=== PATIENT | male | born 1955 | race Caucasian/White ===

== ENCOUNTER 2018-11-12 15:54 | Inpatient (IN) | payer OTHER ==
[~2018-11-12] VITALS: Ht 170.2 cm; Wt 132.9 kg
[~2018-11-12 15:54] MED LIST changes: -ACET325 PO; -AMLO10 PO; -ATOR20 PO; -CEFP200 PO; -CENTRUM SILVER1 EAC2 PO; -Florastor250 MG PO; -MIRALAX17 GM PO; -TAMS.4ER PO; -VIT1CAPS12 PO
[2018-11-12 17:57] LABS: Source, Urine Catheter
[2018-11-12 18:09] LABS: Bilirubin, Urine Neg (Neg); Blood, Urine 5+ (Neg); Glucose Qualitative, Urine Neg (Neg); Ketones, Urine 1+ (Neg); Leukocyte Esterase, Urine 3+ (Neg); Nitrite, Urine Neg (Neg); Protein, Urine 3+ (Neg); Specific Gravity, Urine 1.015 (1.003-1.022); Urobilinogen, Urine NORM (Normal)
[2018-11-12 18:14] LABS: Appearance, Urine Hazy (Clear); Color, Urine Yellow (P-Yellow)
[2018-11-12 18:16] LABS: Bacteria Mod /hpf; Mucus Mod ({null, 0-Heavy}); Squamous Epithelial Cells Not Seen /hpf (Few); White Blood Cells, Urine 50-100 /hpf (0-5)
[2018-11-12] MEDS ORDERED: AMLO10 PO (18:59)
[2018-11-12] MEDS ORDERED: ATOR20 PO (18:59)
[2018-11-12] MEDS ORDERED: VIT1CAPS12 PO (18:59)
[2018-11-12] MEDS ORDERED: TAMS.4ER PO (19:00)
[2018-11-12] MEDS ORDERED: METF500 PO (21:19)
--- NOTE | 2018-11-13 04:24 | NUR ---
SHIFT SUMMARY: PT IS ALERT AND ORIENTED. PT IS CALM AND COOPERATIVE WITH CARE. PT CALLS APPROPRIATLEY. PT IS INDEPENDENT IN THE ROOM. PT DENIES PAIN, NAUSEA, VOMITING, AND SOB. PT SLEPT MUCH OF THE NIGHT WHEN NOT DISTURBED. LACTIC ACID LEVEL TRENDING DOWN. PT AFEBRILE SINCE ADMISSION. NO ACUTE CHANGES OR COMPLICATIONS THIS SHIFT. BED IN LOW POSITION, CALL LIGHT WITHIN REACH. WILL REPORT TO DAY NURSE.
[2018-11-13 04:50] LABS: BASOPHILS ABSOLUTE AUTO 0.02 K/mm3 (0.00-0.23); BASOPHILS PERCENT AUTO 0 % (0-2); EOSINOPHILS ABSOLUTE AUTO 0.05 K/mm3 (0.00-0.68); EOSINOPHILS PERCENT AUTO 0 % (0-6); Hematocrit 34.7 % (37.0-53.0); Hemoglobin 11.4 g/dL (13.5-17.5); IMMATURE GRAN ABSOLUTE AUTO 0.05 K/mm3 (0.00-0.10); IMMATURE GRAN PERCENT AUTO 0 % (0-1); LYMPHOCYTES ABSOLUTE AUTO 1.21 K/mm3 (0.84-5.20); LYMPHOCYTES PERCENT AUTO 9 % (21-46); MONOCYTES ABSOLUTE AUTO 1.22 K/mm3 (0.16-1.47); MONOCYTES PERCENT AUTO 9 % (4-13); Mean Corpuscular HGB 28.5 pg (26.0-34.0); Mean Corpuscular HGB Conc 32.9 g/dL (31.5-36.5); Mean Platelet Volume 9.3 fL (9.1-12.4); NEUTROPHILS ABSOLUTE AUTO 11.26 K/mm3 (1.96-9.15); NEUTROPHILS PERCENT AUTO 82 % (41-73); Platelet Count 185 K/mm3 (150-400); RDW Coefficient Variation 14.6 % (11.7-14.2); RDW Standard Deviation 46.1 fL (35.1-46.3); White Blood Cell Count 13.81 K/mm3 (4.00-11.30)
[2018-11-13 04:51] LABS: Mean Corpuscular Volume 87 fL (80-100)
[2018-11-13 05:10] LABS: Anion Gap 9 mmol/L (6-16); Blood Urea Nitrogen 7 mg/dL (8-24); Bun/Creatinine Ratio 8.1 (12.0-20.0); CO2, Blood 24 mmol/L (21-32); Calcium, Blood 8.2 mg/dL (8.5-10.1); Chloride, Blood 104 mmol/L (98-108); Creatinine, Blood 0.86 mg/dL (0.60-1.20); Glomerular Filtration Rate >60 (60-); Glucose, Blood 151 mg/dL (70-99); Potassium, Blood 3.5 mmol/L (3.5-5.5); Sodium, Blood 137 mmol/L (136-145)
--- NOTE | 2018-11-13 17:57 | NUR ---
PT IS A/OX3, PLEASANT AND COOPERATIVE, THE PT IS UP IND IN HIS ROOM , THE PT DENIED ANY PAIN T/O THE DAY, THE PT APPEARS TO BE BREATHING EASILY ON RA, THE PTS HAS BEEN AT THE BEDSIDE T/O THE DAY, CALL LIGHT IN REACH, WILL CONTINUE TO MONITOR AND ASSESS FOR CHANGES
[2018-11-14 04:43] LABS: BASOPHILS ABSOLUTE AUTO 0.02 K/mm3 (0.00-0.23); BASOPHILS PERCENT AUTO 0 % (0-2); EOSINOPHILS ABSOLUTE AUTO 0.25 K/mm3 (0.00-0.68); EOSINOPHILS PERCENT AUTO 3 % (0-6); Hematocrit 35.2 % (37.0-53.0); Hemoglobin 11.5 g/dL (13.5-17.5); IMMATURE GRAN ABSOLUTE AUTO 0.03 K/mm3 (0.00-0.10); IMMATURE GRAN PERCENT AUTO 0 % (0-1); LYMPHOCYTES PERCENT AUTO 13 % (21-46); MONOCYTES ABSOLUTE AUTO 0.91 K/mm3 (0.16-1.47); MONOCYTES PERCENT AUTO 10 % (4-13); Mean Corpuscular HGB 28.1 pg (26.0-34.0); Mean Corpuscular HGB Conc 32.7 g/dL (31.5-36.5); Mean Corpuscular Volume 86 fL (80-100); Mean Platelet Volume 9.4 fL (9.1-12.4); NEUTROPHILS ABSOLUTE AUTO 7.16 K/mm3 (1.96-9.15); NEUTROPHILS PERCENT AUTO 75 % (41-73); Platelet Count 184 K/mm3 (150-400); RDW Coefficient Variation 14.5 % (11.7-14.2); RDW Standard Deviation 45.1 fL (35.1-46.3); Red Blood Cell Count 4.09 M/mm3 (4.30-5.90); White Blood Cell Count 9.57 K/mm3 (4.00-11.30)
[2018-11-14 05:03] LABS: Albumin, Blood 2.6 g/dL (3.4-5.0); Anion Gap 8 mmol/L (6-16); Blood Urea Nitrogen 8 mg/dL (8-24); Bun/Creatinine Ratio 8.7 (12.0-20.0); CO2, Blood 28 mmol/L (21-32); Calcium, Blood 8.6 mg/dL (8.5-10.1); Chloride, Blood 105 mmol/L (98-108); Creatinine, Blood 0.92 mg/dL (0.60-1.20); Glomerular Filtration Rate >60 (60-); Glucose, Blood 124 mg/dL (70-99); Phosphorus, Blood 2.9 mg/dL (2.5-4.9); Potassium, Blood 3.6 mmol/L (3.5-5.5); Sodium, Blood 141 mmol/L (136-145)
--- NOTE | 2018-11-14 05:13 | NUR ---
SHIFT SUMMARY: PT IS ALERT AND ORIENTED. PT IS CALM, FRIENDLY, AND COOPERATIVE WITH CARE. PT CALLS APPROPRIATELY. PT IS INDEPENDENT IN THE ROOM. IN VISITING AT THE START OF THE NIGHT. PT DENIES PAIN, NAUSEA, VOMITING, AND SOB. PT SLEPT MUCH OF THE NIGHT WHEN NOT DISTURBED. NO ACUTE CHANGES OR COMPLICATIONS THIS SHIFT. WILL CONTINUE TO MONITOR.
[2018-11-14] MEDS ORDERED: ACET325 PO (12:39)
[2018-11-14] MEDS ORDERED: CENTRUM SILVER1 EAC2 PO (12:40)
[2018-11-14] MEDS ORDERED: CEFP200 PO (12:40)
[2018-11-14] MEDS ORDERED: MIRALAX17 GM PO (12:41)
[2018-11-14] MEDS ORDERED: Florastor250 MG PO (12:41)
--- NOTE | 2018-11-14 14:50 | NUR ---
PT DISCHARGED THE PT VERBALIZED UNDERSTANDING OF THE DC INSTRUCTIONS, THE PTS PRESCRIPTIONS FAXED TO [facility] REQUESTED, AN APPOINTMENT WAS MADE WITH DR. LLANOS FOR POST HOSPITAL REVIEW, THE PT WAS TRANSFERED VIA WHEELCHAIR ACCOMPANIED BY ESCORT AND HIS SON, PT APPEARED TO BE BREATHING EASILY ON RA AT DISCHARGE
== END 2018-11-14 13:30 | disposition home or self-care (01) | DRG 862 ==
LOC: ER 15:54 → MEDS 20:05
PROVIDERS: Family Medicine; Physician Assistant; ADMIT Hospitalist
DX: T81.44XA Sepsis following a procedure, initial encounter (principal); R65.20 Severe sepsis without septic shock; A41.89 Other specified sepsis; E87.1 Hypo-osmolality and hyponatremia; N10 Acute pyelonephritis; E11.9 Type 2 diabetes mellitus without complications; E66.01 Morbid (severe) obesity due to excess calories; D64.9 Anemia, unspecified; I10 Essential (primary) hypertension; K21.9 Gastro-esophageal reflux disease without esophagitis; Z79.82 Long term (current) use of aspirin; Z79.899 Other long term (current) drug therapy; Z68.24 Body mass index [BMI] 24.0-24.9, adult
CPT/HCPCS: 36415; 74177; 80048; 80069; 81001; 82947; 83605; 85025; 87086; 93005; 93010; 96360-59; 96361; 99285-25; A9270; J0696; J1650; J7030; J7120; Q9967

== ENCOUNTER → 2018-11-12 | Outpatient (CLI) | payer OTHER ==
[~2018-11-12] MED LIST: ACET325 PO; AMLO10 PO; ASPI81CH PO; ATEN50 PO; ATOR20 PO; CEFP200 PO; CENTRUM SILVER1 EAC2 PO; Florastor250 MG PO; LISI20 PO; METF500 PO; MIRALAX17 GM PO; OMEP20ER PO; TAMS.4ER PO; VIT1CAPS12 PO
[2018-11-12 12:45] LABS: BASOPHILS ABSOLUTE AUTO 0.03 K/mm3 (0.00-0.23); BASOPHILS PERCENT AUTO 0 % (0-2); EOSINOPHILS ABSOLUTE AUTO 0.04 K/mm3 (0.00-0.68); EOSINOPHILS PERCENT AUTO 0 % (0-6); Hematocrit 39.5 % (37.0-53.0); Hemoglobin 13.4 g/dL (13.5-17.5); IMMATURE GRAN ABSOLUTE AUTO 0.04 K/mm3 (0.00-0.10); IMMATURE GRAN PERCENT AUTO 0 % (0-1); LYMPHOCYTES ABSOLUTE AUTO 1.44 K/mm3 (0.84-5.20); LYMPHOCYTES PERCENT AUTO 12 % (21-46); MONOCYTES ABSOLUTE AUTO 1.24 K/mm3 (0.16-1.47); MONOCYTES PERCENT AUTO 10 % (4-13); Mean Corpuscular HGB 28.3 pg (26.0-34.0); Mean Corpuscular HGB Conc 33.9 g/dL (31.5-36.5); Mean Corpuscular Volume 83 fL (80-100); Mean Platelet Volume 9.2 fL (9.1-12.4); NEUTROPHILS PERCENT AUTO 78 % (41-73); Platelet Count 240 K/mm3 (150-400); RDW Coefficient Variation 14.4 % (11.7-14.2); RDW Standard Deviation 43.3 fL (35.1-46.3); Red Blood Cell Count 4.74 M/mm3 (4.30-5.90); White Blood Cell Count 12.49 K/mm3 (4.00-11.30)
[2018-11-12 12:55] LABS: Alanine Aminotransfer (ALT/SGP 22 U/L (12-78); Albumin, Blood 3.6 g/dL (3.4-5.0); Albumin/Globulin Ratio 0.9 (0.8-1.8); Alk Phos 79 U/L (40-126); Anion Gap 11 mmol/L (6-16); Aspartate Aminotrans (AST/SGOT 16 U/L (12-37); Bilirubin, Total 0.9 mg/dL (0.1-1.0); Blood Urea Nitrogen 8 mg/dL (8-24); Bun/Creatinine Ratio 6.9 (12.0-20.0); CO2, Blood 25 mmol/L (21-32); Calcium, Blood 9.3 mg/dL (8.5-10.1); Chloride, Blood 97 mmol/L (98-108); Creatinine, Blood 1.16 mg/dL (0.60-1.20); Glomerular Filtration Rate >60 (60-); Glucose, Blood 146 mg/dL (70-99); Potassium, Blood 3.7 mmol/L (3.5-5.5); Sodium, Blood 133 mmol/L (136-145); Total Protein, Blood 7.6 g/dL (6.4-8.2)
== END | disposition home or self-care (01) ==
LOC: LAB SHORT 12:36 → LAB EV 12:36
PROVIDERS: Physician Assistant
DX: A41.9 Sepsis, unspecified organism (principal)
CPT/HCPCS: 80053; 83605; 85025; 87040; 87077; 87086; 87186

== ENCOUNTER → 2018-11-22 | Outpatient (CLI) | payer OTHER ==
[~2018-11-22] MED LIST changes: +ACET325 PO; +AMLO10 PO; +ATOR20 PO; +CEFP200 PO; +CENTRUM SILVER1 EAC2 PO; +Florastor250 MG PO; +MIRALAX17 GM PO; +TAMS.4ER PO; +VIT1CAPS12 PO
== END | disposition home or self-care (01) ==
LOC: LAB UCHC 12:26 → LAB SHORT 12:26
DX: Z09 Encounter for follow-up examination after completed treatment for conditions other than malignant neoplasm (principal); Z87.442 Personal history of urinary calculi
CPT/HCPCS: 87086

== ENCOUNTER → 2019-05-22 | Outpatient (CLI) | payer OTHER | END | disposition home or self-care (01) | LOC: LAB 05:30 → LAB SHORT 05:30 → LAB FUT 05-15 10:00 | DX: N20.0 Calculus of kidney (principal) | CPT/HCPCS: 81050 ==

== ENCOUNTER 2021-12-02 16:14 | Emergency (ER) | payer OTHER ==
[~2021-12-02] VITALS: Ht 167.6 cm; Wt 136.1 kg
[2021-12-02] MEDS ORDERED: HYDR1TAB94 PO (19:04)
[2021-12-02] MEDS ORDERED: ONDA4ODT MM (19:07)
== END 2021-12-02 19:36 | disposition home or self-care (01) ==
LOC: ER 16:14
DX: S01.81XA Laceration without foreign body of other part of head, initial encounter (principal); S01.02XA Laceration with foreign body of scalp, initial encounter; M25.511 Pain in right shoulder; V49.60XA Unspecified car occupant injured in collision with unspecified motor vehicles in traffic accident, initial encounter; I10 Essential (primary) hypertension; E11.9 Type 2 diabetes mellitus without complications; Z79.899 Other long term (current) drug therapy; Z79.84 Long term (current) use of oral hypoglycemic drugs
CPT/HCPCS: 70450; 72125; 73030; A9270

== ENCOUNTER → 2023-02-23 | Outpatient (CLI) | payer OTHER ==
[~2023-02-23] MED LIST changes: +HYDR1TAB94 PO; +ONDA4ODT MM
== END ==
LOC: LAB 17:56 → LAB SHORT 17:56
DX: E11.9 Type 2 diabetes mellitus without complications (principal)
CPT/HCPCS: 82043

== ENCOUNTER 2024-11-11 11:28 | Observation (INO) | payer OTHER, MEDICARE ==
[~2024-11-11] VITALS: Ht 170.2 cm; Wt 129.4 kg
[2024-11-11] MEDS ORDERED: NS 1,000 ML IV SCH ×2 (12:40→16:25)
[2024-11-11 12:55] LABS: BASOPHILS ABSOLUTE AUTO 0.02 K/mm3 (0.00-0.23); BASOPHILS PERCENT AUTO 0 % (0-2); EOSINOPHILS ABSOLUTE AUTO 0.23 K/mm3 (0.00-0.68); EOSINOPHILS PERCENT AUTO 3 % (0-6); Hematocrit 33.2 % (37.0-53.0); Hemoglobin 11.3 g/dL (13.5-17.5); IMMATURE GRAN ABSOLUTE AUTO 0.03 K/mm3 (0.00-0.10); IMMATURE GRAN PERCENT AUTO 0 % (0-1); LYMPHOCYTES ABSOLUTE AUTO 1.50 K/mm3 (0.84-5.20); LYMPHOCYTES PERCENT AUTO 17 % (21-46); MONOCYTES ABSOLUTE AUTO 0.86 K/mm3 (0.16-1.47); MONOCYTES PERCENT AUTO 10 % (4-13); Mean Corpuscular HGB Conc 34.0 g/dL (31.5-36.5); Mean Corpuscular Volume 90 fL (80-100); NEUTROPHILS ABSOLUTE AUTO 6.06 K/mm3 (1.96-9.15); NEUTROPHILS PERCENT AUTO 70 % (41-73); NRBC ABSOLUTE 0.00 K/mm3 (0.00-0.02); NRBC Auto 0.0 /100 WBC (0.0-0.2); Platelet Count 248 K/mm3 (150-400); RDW Coefficient Variation 13.2 % (11.7-14.2); RDW Standard Deviation 43.6 fL (35.1-46.3)
[2024-11-11 13:20] LABS: Alanine Aminotransfer (ALT/SGP 16.0 U/L (12-78); Albumin, Blood 3.3 g/dL (3.4-5.0); Albumin/Globulin Ratio 0.8 (0.8-1.8); Anion Gap 10.0 mmol/L (3-11); Aspartate Aminotrans (AST/SGOT 10.0 U/L (12-37); Bilirubin, Total 0.7 mg/dL (0.1-1.0); Blood Urea Nitrogen 31.0 mg/dL (8-24); CO2, Blood 21.0 mmol/L (21-32); Calcium, Blood 7.2 mg/dL (8.5-10.1); Chloride, Blood 106.0 mmol/L (98-108); Creatinine, Blood 3.47 mg/dL (0.60-1.20); Globulin, Blood 3.9 g/dL (2.2-4.0); Glucose, Blood 147.0 mg/dL (70-99); Potassium, Blood 4.4 mmol/L (3.5-5.5); Sodium, Blood 133.0 mmol/L (136-145); Total Protein, Blood 7.2 g/dL (6.4-8.2)
[2024-11-11 13:47] LABS: Source, Urine Clean Catch
[2024-11-11 13:54] LABS: Bilirubin, Urine Neg (Neg); Color, Urine Yellow (P-Yellow); Glucose Qualitative, Urine Neg (Neg); Ketones, Urine Neg (Neg); Leukocyte Esterase, Urine 3+ (Neg); Protein, Urine 3+ (Neg); Specific Gravity, Urine 1.015 (1.003-1.022); Urobilinogen, Urine NORM (Normal)
[2024-11-11 14:03] LABS: Red Blood Cells, Urine 25-50 /hpf (0-2); White Blood Cells, Urine 50-100 /hpf (0-5)
[2024-11-11] MEDS ORDERED: CefTRIAXone Sodium 1,000 MG in NS 50 ML IV ONE (15:20)
--- NOTE | 2024-11-11 18:54 | NUR ---
1850 pt to room from er. ambulated to bed from wheelchair. presents pleasant. to undress and dress in gown. at bedside. aide to get v/s. give report to blake nunez.
[2024-11-11 18:55] VITALS: BP 135/82
[2024-11-11] MEDS ORDERED: PRESERVISION A1 EAC1 PO (20:44)
[2024-11-11] MEDS ORDERED: OZEMPIC1 MG/0.72 SQ (20:45)
[2024-11-11] MEDS ORDERED: Lactobacil 2-S.Thermo-Bifido 1 1 Cap PO SCH (21:00)
--- NOTE | 2024-11-11 22:34 | NUR ---
PT ARRIVED DURING SHIFT CHANGE. THIS SHIFT'S CHARGE NURSE LUI Li COMPLETED THE ADMISSION ASSESSMENT. PT BROUGHT HIS HOME CPAP WITH HIM. BY THE BEDSIDE. EDUCATED ON FALL PRECAUTIONS, SMOKING POLICY AND CALL LIGHT USE. PT IS A/O X4, ABLE TO MAKE HIS NEEDS KNOWN AND COOPERATIVE WITH CARE. BED AT THE LOWEST POSITION,CALL LIGHT W/I REACH. PT IS INDEPENDENT WITHIN THE HOSPITAL ROOM.
[2024-11-12 02:44] VITALS: BP 110/80
[2024-11-12 05:37] LABS: BASOPHILS ABSOLUTE AUTO 0.04 K/mm3 (0.00-0.23); BASOPHILS PERCENT AUTO 1 % (0-2); EOSINOPHILS ABSOLUTE AUTO 0.32 K/mm3 (0.00-0.68); EOSINOPHILS PERCENT AUTO 4 % (0-6); Hematocrit 30.9 % (37.0-53.0); Hemoglobin 10.3 g/dL (13.5-17.5); IMMATURE GRAN ABSOLUTE AUTO 0.03 K/mm3 (0.00-0.10); IMMATURE GRAN PERCENT AUTO 0 % (0-1); LYMPHOCYTES ABSOLUTE AUTO 1.73 K/mm3 (0.84-5.20); LYMPHOCYTES PERCENT AUTO 21 % (21-46); MONOCYTES ABSOLUTE AUTO 0.92 K/mm3 (0.16-1.47); MONOCYTES PERCENT AUTO 11 % (4-13); Mean Corpuscular HGB Conc 33.3 g/dL (31.5-36.5); Mean Corpuscular Volume 90 fL (80-100); NEUTROPHILS ABSOLUTE AUTO 5.37 K/mm3 (1.96-9.15); NEUTROPHILS PERCENT AUTO 64 % (41-73); NRBC ABSOLUTE 0.00 K/mm3 (0.00-0.02); NRBC Auto 0.0 /100 WBC (0.0-0.2); Platelet Count 226 K/mm3 (150-400); RDW Coefficient Variation 13.3 % (11.7-14.2); RDW Standard Deviation 43.8 fL (35.1-46.3)
[2024-11-12 06:08] LABS: Alanine Aminotransfer (ALT/SGP 13.0 U/L (12-78); Albumin, Blood 2.8 g/dL (3.4-5.0); Albumin/Globulin Ratio 0.8 (0.8-1.8); Anion Gap 11.0 mmol/L (3-11); Aspartate Aminotrans (AST/SGOT 14.0 U/L (12-37); Bilirubin, Total 0.5 mg/dL (0.1-1.0); Blood Urea Nitrogen 30.0 mg/dL (8-24); CO2, Blood 20.0 mmol/L (21-32); Calcium, Blood 6.4 mg/dL (8.5-10.1); Chloride, Blood 111.0 mmol/L (98-108); Creatinine, Blood 2.73 mg/dL (0.60-1.20); Globulin, Blood 3.7 g/dL (2.2-4.0); Glucose, Blood 82.0 mg/dL (70-99); Potassium, Blood 4.1 mmol/L (3.5-5.5); Sodium, Blood 138.0 mmol/L (136-145); Thyroid Stimulating Hormone 1.46 uIU/mL (0.360-4.800); Total Protein, Blood 6.5 g/dL (6.4-8.2); Uric Acid, Blood 6.7 mg/dL (3.5-7.2)
[2024-11-12 07:15] VITALS: BP 149/82
[2024-11-12] MEDS ORDERED: Enoxaparin 30 MG/0.3 ML SYR SC SCH (09:00)
[2024-11-12] MEDS ORDERED: Enoxaparin 40 MG/0.4 ML SYR SC SCH (09:00)
[2024-11-12] MEDS ORDERED: NS 1,000 ML IV SCH (09:15)
--- NOTE | 2024-11-12 09:30 | NUR ---
[address] CALL, TURNING UP NS TO [address] MARADIAGA CALL
[2024-11-12] MEDS ORDERED: CefTRIAXone Sodium 1,000 MG in NS 100 ML IV SCH (12:00)
[2024-11-12 15:12] VITALS: BP 126/80
[2024-11-12 15:47] LABS: Anion Gap 10.0 mmol/L (3-11); Blood Urea Nitrogen 26.0 mg/dL (8-24); CO2, Blood 22.0 mmol/L (21-32); Calcium, Blood 6.7 mg/dL (8.5-10.1); Chloride, Blood 109.0 mmol/L (98-108); Creatinine, Blood 2.46 mg/dL (0.60-1.20); Glucose, Blood 113.0 mg/dL (70-99); Potassium, Blood 4.1 mmol/L (3.5-5.5); Sodium, Blood 137.0 mmol/L (136-145)
[2024-11-12] MEDS ORDERED: VISBIOME 112.51 EACH PO (16:39)
[2024-11-12] MEDS ORDERED: CEPH500 PO (16:40)
--- NOTE | 2024-11-12 16:51 | NUR ---
DR REYESED DISCHARGE AFTER REVIEW OF AFTERNOON LABS. PT OK TO GO. WORKING D/CHG
--- NOTE | 2024-11-12 18:16 | NUR ---
PT DISCHARGE REVIEWED WITH PT. HE VERBALIZED UNDERSTANDING MEDS AND INST. GAVE PT LAB ORDER ON RX PAPER. PT TO DRESS SELF. AIDE TO REMOVE IV, NO TELE. PT WHEELED TO DOOR AT 1755
== END 2024-11-12 17:55 | disposition home or self-care (01) ==
LOC: ER 11:28 → MEDS 11:29
PROVIDERS: Emergency Medicine; ADMIT Internal Medicine
DX: N17.9 Acute kidney failure, unspecified (principal); N18.30 Chronic kidney disease, stage 3 unspecified; E11.22 Type 2 diabetes mellitus with diabetic chronic kidney disease; I12.9 Hypertensive chronic kidney disease with stage 1 through stage 4 chronic kidney disease, or unspecified chronic kidney disease; N39.0 Urinary tract infection, site not specified; N20.0 Calculus of kidney; K21.9 Gastro-esophageal reflux disease without esophagitis; E66.01 Morbid (severe) obesity due to excess calories; Z79.82 Long term (current) use of aspirin; Z79.84 Long term (current) use of oral hypoglycemic drugs; Z79.85 Long-term (current) use of injectable non-insulin antidiabetic drugs; Z79.899 Other long term (current) drug therapy
CPT/HCPCS: 36415; 74176; 80048; 80053; 81001; 82947; 84443; 84550; 85025; 87086; 94762; 96361; 96365; 96372; 96374; 96376; 99285-25; A9270; G0378; J0696; J1650; J7030

== ENCOUNTER 2024-11-14 14:21 | Emergency (ER) | payer OTHER, MEDICARE ==
[~2024-11-14] VITALS: Ht 167.6 cm; Wt 128.4 kg
[~2024-11-14 14:21] MED LIST changes: +CEPH500 PO; +OZEMPIC1 MG/0.72 SQ; +PRESERVISION A1 EAC1 PO; +VISBIOME 112.51 EACH PO
[2024-11-14] MEDS ORDERED: Magnesium Sulf 2 GM/Water 50ML 100 ML IV ONE (14:50)
[2024-11-14] MEDS ORDERED: Magnesium Sulf 2 GM/Water 50ML 50 ML IV SCH (16:30)
[2024-11-14 21:57] VITALS: BP 165/75
== END 2024-11-14 21:58 | disposition home or self-care (01) ==
LOC: ER 14:21
DX: E83.42 Hypomagnesemia (principal); Z79.82 Long term (current) use of aspirin; Z79.899 Other long term (current) drug therapy
CPT/HCPCS: 83735; 96365; 96366; 99283-25; J3475

== ENCOUNTER → 2024-11-22 | Outpatient (CLI) | payer OTHER, MEDICARE | END | disposition home or self-care (01) | LOC: LAB 16:33 → LAB SHORT 16:33 | DX: E11.8 Type 2 diabetes mellitus with unspecified complications (principal); N39.0 Urinary tract infection, site not specified | CPT/HCPCS: 87086 ==

== ENCOUNTER → 2025-02-06 | Outpatient (CLI) | payer OTHER | LOC: LAB 16:49 → LAB SHORT 16:49 | DX: R30.0 Dysuria (principal) | CPT/HCPCS: 87086 ==